=== PATIENT | male | born 1970 | race Two or more races ===

== ENCOUNTER 2019-06-08 11:15 | Inpatient (IN) | payer OTHER ==
[~2019-06-08 11:15] MED LIST: DARUNAVIR 800 MG/COBICISTAT 150MG TABLET PO ONE; EMTRICITABINE/TENOFOV ALAFENAM (DESCOVY) TABLET PO ONE
[2019-06-08 12:30] VITALS: BMI 25.4
--- NOTE | 2019-06-08 13:42 | HP ---
COWS - Scale Resting Pulse: 0= [place] 80 or Below Sweatin= Chills/Flushing Restless Observation: 1= Difficult to Sit Still Pupil Size: 1= Pupils >than Normal Bone or Joint Aches: 2= Severe Diffuse Aches Runny Nose/ Eye Tearin= Runny Nose/Eyes GI Upset > 30mins: 2= Nausea/Diarrhea Tremor Observation: 1= Tremor [place], Not Seen Yawning Observation: 2= >3x During Session Anxiety or Irritability: 2=Irritable/Anxious Goose Flesh Skin: 0=Smooth Skin COWS Score: 14 CIWA Score Nausea/Vomitin-Mild Nausea/No Vomiting Muscle Tremors: 3 Anxiety: 2 Agitation: 2 Paroxysmal Sweats: 3 Orientation: 0-Oriented Tacttile Disturbances: 0-None Auditory Disturbances: 0-None Visual Disturbances: 0-None Headache: 1-Very Mild CIWA-Ar Total Score: 12 - Admission Criteria OASAS Guidelines: Admission for Medically Managed Detox: Requires at least one of the followin. CIWA greater than 12 2. Seizures within the past 24 hours 3. Delirium tremens within the past 24 hours 4. Hallucinations within the past 24 hours 5. Acute intervention needed for co occurring medical disorder 6. Acute intervention needed for co occurring psychiatric disorder 7. Severe withdrawal that cannot be handled at a lower level of care (continued vomiting, continued diarrhea, abnormal vital signs) requiring intravenous medication and/or fluids 8. Admission ROS [facility] Chief Complaint: " I want to stop using heroin and stop using drugs and ciggarettes" Allergies/Adverse Reactions: Allergies Allergy/AdvReac Type Severity Reaction Status Date / Time No Known Allergies Allergy Verified 06/08/19 12:16 History of Present Illness: Patient is a 48 year old male with opioid dependence, alcohol dependence and cocaine use. Patient is also a smoker of 1ppd for 35 years. Patient 14 bags per day of heroin, last used this am. Patient uses cocaine about $30-40 per day, and last used yesterday night Patient drinks a 1/4 pint of vodka every day, and last drank this AM. Patient has had blackouts. Patients never had seizures on withdrawal. Patient is homeless but sometimes stays with his mother. He has approved for housing and has a voucher for [employer] and rental aide. PMHx: None Psurg Hx: None except for varicose vein depletion. Patient has no legal issues pending. Exam Limitations: No Limitations - Ebola screening Have you traveled outside of the country in the last 21 days: No Have you had contact with anyone from an Ebola affected area: No Have you been sick,other than usual withdrawal symptoms: No Do you have a fever: No - Review of Systems Constitutional: Diaphoresis, Unintentional Wgt. Loss EENT: reports: Tearing, Nose Congestion Respiratory: reports: No Symptoms reported Cardiac: reports: No Symptoms Reported GI: reports: Nausea, Abdominal cramping : reports: No Symptoms Reported Musculoskeletal: reports: Muscle Pain Integumentary: reports: No Symptoms Reported Neuro: reports: Numbness (in feet) Endocrine: reports: No Symptoms Reported Hematology: reports: No Symptoms Reported Psychiatric: reports: Judgement Intact, Mood/Affect Appropiate, Orientated x3 Other Systems: Reviewed and Negative Patient History - Patient Medical History Hx Anemia: No Hx Asthma: No Hx Chronic Obstructive Pulmonary Disease (COPD): No Hx Cancer: No Hx Cardiac Disorders: No Hx Congestive Heart Failure: No Hx Hypertension: No Hx Hypercholesterolemia: No Hx Pacemaker: No HX Cerebrovascular Accident: No Hx Seizures: No Hx Dementia: No Hx Diabetes: No Hx Gastrointestinal Disorders: No Hx Liver Disease: No Hx Genitourinary Disorders: No Hx Sexually Transmitted Disorders: No Hx Renal Disease (ESRD): No Hx Thyroid Disease: No Hx Human Immunodeficiency Virus (HIV): No Hx Hepatitis C: No Hx Depression: No Hx Suicide Attempt: No Hx Bipolar Disorder: No Hx Schizophrenia: No - Patient Surgical History Past Surgical History: Yes Other Surgical History: veins removed due to varicosities - PPD History Previous Implant?: Yes Documented Results: Negative w/o proof Implanted On Prior R Admission?: No PPD to be Administered?: No - Smoking Cessation Smoking history: Current every day smoker Have you smoked in the past 12 months: Yes Aproximately how many cigarettes per day: 20 Hx Chewing Tobacco Use: No Initiated information on smoking cessation: No 'Breaking Loose' booklet given: 06/08/19 - Substances abused Other Substance route: Oral Frequency: Daily Amount used: 4- 24oz Margaritas, Cognac 1/4 of a pint Age of first use: 14 Date of last use: 06/08/19 Heroin Substance route: Inhalation Frequency: Daily Amount used: 13 bags Age of first use: 14 Date of last use: 06/08/19 Cocaine Substance route: Inhalation Frequency: 3-6 times per week Amount used: $30 Age of first use: 14 Date of last use: 06/07/19 Family Disease History - Family Disease History Family History: Unremarkable Family Disease History: Other: Father (alive and well ), Mother (alive and well) , Sister (2 sister alive and well) Admission Physical Exam S - Vital Signs Vital Signs: Vital Signs - 24 hr 06/08/19 12:22 Temperature 98.2 F Pulse Rate 58 L Respiratory 17 Rate Blood Pressure 119/73 Cleared for Admission [facility] - Detox or Rehab [facility] Level of Care: Medically Managed Detox Regimen/Protocol: Methadone/Librium Claeared for Rehab Admission: No Screened but not Admitted - Documentation of Visit Screened but not Admitted: No Breathalyzer - Breathalyzer Breathalyzer: 0.004 Vital Signs - Vital Signs Vital signs refused: No Temperature: 98.2 F Temperature source: Oral Pulse Rate: 58 Respiratory Rate: 17 Blood Pressure: 119/73 BP Location: Left Arm Blood Pressure position: Sitting - Height Height: 6 ft - Weight Weight: 188 lb Weight measurement method: Standing scale - BMI Body Mass Index (BMI): 25.4 - Bowel Function Bowel Movement: No Inpatient Rehab Admission - Rehab Decision to Admit Inpatient rehab admission?: No
[2019-06-08] MEDS ORDERED: MENTHOL/PHENOL 1 EACH UD MM PRN (13:51)
[2019-06-08] MEDS ORDERED: MAGNESIUM CITRATE 300 ML BOTTLE PO PRN (13:51)
[2019-06-08] MEDS ORDERED: IBUPROFEN 400 MG TABLET (FP) PO PRN (13:51)
[2019-06-08] MEDS ORDERED: MAG HYDROX/AL HYDROX/SIMETH 30 ML UNIT-DOSE CUP PO PRN (13:51)
[2019-06-08] MEDS ORDERED: BISMUTH SUBSALICYLATE 524 MG/30 ML UD PO PRN (13:51)
[2019-06-08] MEDS ORDERED: MAGNESIUM HYDROX 2400MG/30ML ORAL SUSPENSION 30 ML CUP PO PRN (13:51)
[2019-06-08] MEDS ORDERED: ACETAMINOPHEN 325 MG TABLET (FP) PO PRN ×2 (13:51)
[2019-06-08] MEDS ORDERED: chlordiazePOXIDE HCL 25 MG CAPSULE PO PRN (13:51)
[2019-06-08] MEDS ORDERED: METHOCARBAMOL 500 MG TABLET PO PRN (13:51)
[2019-06-08] MEDS ORDERED: cloNIDine HCL 0.1 MG TABLET PO PRN (13:51)
[2019-06-08] MEDS ORDERED: hydrOXYzine PAMOATE 25 MG CAPSULE (FP) PO PRN (13:51)
[2019-06-08] MEDS ORDERED: LEVOTHYROXINE NA 25 MCG TABLET (FP) PO SCH (14:00)
[2019-06-08] MEDS ORDERED: DARUNAVIR 800 MG/COBICISTAT 150MG TABLET PO SCH (14:45)
[2019-06-08] MEDS ORDERED: RALTEGRAVIR POTASSIUM 400 MG TAB PO SCH (14:45)
[2019-06-08] MEDS ORDERED: METHADONE HCL 10 MG TABLET (FOR DETOX USE ONLY) PO ONE (14:45)
[2019-06-08] MEDS ORDERED: EMTRICITABINE/TENOFOV ALAFENAM (DESCOVY) TABLET PO SCH (14:45)
[2019-06-08] MEDS: NICOTINE 21 MG/24 HOURS TOPICAL PATCH TD SCH (15:35)
[2019-06-08 17:01] LABS: HEMATOCRIT 40.9 % (35.4-49); HEMOGLOBIN 14.4 GM/dL (11.7-16.9); MCH 33.5 pg (25.7-33.7); MCHC 35.4 g/dl (32.0-35.9); MEAN CELL VOLUME 94.8 fl (80-96); MEAN PLT VOLUME 9.8 fl (7.5-11.1); PLATELET COUNT 209 K/MM3 (134-434); RBC 4.31 M/mm3 (4.00-5.60); RDW 12.8 % (11.9-15.9); WHITE BLOOD COUNT 6.5 K/mm3 (4.0-10.0)
[2019-06-08 17:16] LABS: ALBUMIN 3.9 g/dl (3.4-5.0); BILIRUBIN,TOTAL 0.4 mg/dL (0.2-1); BLOOD UREA NITROGEN 11.1 mg/dL (7-18); CREATININE 1.1 mg/dL (0.55-1.3); TOT PROT 7.3 g/dl (6.4-8.2)
[2019-06-08] MEDS: chlordiazePOXIDE HCL 25 MG CAPSULE PO SCH ×2 (17:50→22:18)
[2019-06-08] MEDS: THIAMINE HCL 100 MG TABLET (FP) PO SCH (22:18)
[2019-06-08] MEDS: RALTEGRAVIR POTASSIUM 400 MG TAB PO SCH (22:18)
[2019-06-08] MEDS: MELATONIN 5 MG TABLETS PO PRN (22:19)
[2019-06-08] MEDS ORDERED: EMTRICITABINE/TENOFOV ALAFENAM (DESCOVY) TABLET PO ONE (23:30)
[2019-06-08] MEDS ORDERED: DARUNAVIR 800 MG/COBICISTAT 150MG TABLET PO ONE (23:59)
[2019-06-09] MEDS: chlordiazePOXIDE HCL 25 MG CAPSULE PO SCH ×4 (06:32→22:37)
[2019-06-09] MEDS: LEVOTHYROXINE NA 75 MCG TABLET (FP) PO SCH (06:35)
[2019-06-09] MEDS ORDERED: METHADONE HCL 10 MG TABLET (FOR DETOX USE ONLY) ONE (09:06)
[2019-06-09] MEDS ORDERED: METHADONE HCL 5 MG TABLET (FOR DETOX USE ONLY) ONE (09:06)
[2019-06-09] MEDS ORDERED: METHADONE (DETOX) 20 MG, METHADONE (DETOX) 5 MG PO ONE (10:00)
[2019-06-09] MEDS: NICOTINE 21 MG/24 HOURS TOPICAL PATCH TD SCH (10:21)
[2019-06-09] MEDS: PRENATAL VITAMINS W/ FOLIC ACID TABLET (FP) PO SCH (10:22)
[2019-06-09] MEDS: DARUNAVIR 800 MG/COBICISTAT 150MG TABLET PO SCH (10:23)
[2019-06-09] MEDS: EMTRICITABINE/TENOFOV ALAFENAM (DESCOVY) TABLET PO SCH (10:23)
[2019-06-09] MEDS: RALTEGRAVIR POTASSIUM 400 MG TAB PO SCH ×2 (10:23→22:38)
[2019-06-09] MEDS ORDERED: EMTRICITABINE/TENOFOV ALAFENAM (DESCOVY) TABLET PO ONE (10:59)
--- NOTE | 2019-06-09 13:17 | PN ---
[facility] CIWA - CIWA Score Nausea/Vomitin-No Nausea/No Vomiting Muscle Tremors: 3 Anxiety: 2 Agitation: 1-Slight > Activity Paroxysmal Sweats: 3 Orientation: 0-Oriented Tacttile Disturbances: 2-Mild Itch/Numbness/Burn Auditory Disturbances: 2-Mild Harshness/Frighten Visual Disturbances: 0-None Headache: 0-None Present CIWA-Ar Total Score: 13 S COWS - Scale Resting Pulse: 0= [place] 80 or Below Sweatin= Chills/Flushing Restless Observation: 1= Difficult to Sit Still Pupil Size: 0= Normal to Room Light Bone or Joint Aches: 2= Severe Diffuse Aches Runny Nose/ Eye Tearin= None GI Upset > 30mins: 0= None Tremor Observation of Outstretched Hands: 2= Slight Tremor Visible Yawning Observation: 1= 1-2x During Session Anxiety or Irritability: 2=Irritable/Anxious Goose Flesh Skin: 3=Piloerection COWS Score: 12 S Progress Note (SOAP) Subjective: Tremors, Anxious, Body Aches, Sweating. Objective: PATIENT A & O X 3, OBSERVED AMBULATING ON UNIT UNASSISTED. IN NO ACUTE DISTRESS. 06/09/19 13:17 Vital Signs Temperature 97.3 F L 06/09/19 09:33 Pulse Rate 50 L 06/09/19 09:33 Respiratory Rate 16 06/09/19 09:33 Blood Pressure 114/74 06/09/19 09:33 O2 Sat by Pulse Oximetry (%) Laboratory Tests 06/08/19 06/08/19 06/08/19 14:00 14:00 14:00 WBC 6.5 RBC 4.31 Hgb 14.4 Hct 40.9 MCV 94.8 MCH 33.5 MCHC 35.4 RDW 12.8 Plt Count 209 MPV 9.8 Sodium 141 Potassium 4.0 Chloride 106 Carbon Dioxide 27 Anion Gap 8 BUN 11.1 Creatinine 1.1 Est GFR (CKD-EPI)AfAm 90.88 Est GFR (CKD-EPI)NonAf 78.41 Random Glucose 120 H Calcium 9.0 Total Bilirubin 0.4 AST 23 ALT 42 Alkaline Phosphatase 86 Total Protein 7.3 Albumin 3.9 RPR Titer Nonreactive LABS NOTED. RESULTS OF DETOX ADMISSION QFT /TB TEST PENDING. 06/09/19 13:18 Assessment: 08/14/19 13:18 WITHDRAWAL SYMPTOMS. Plan: CONTINUE DETOX. INCREASE DAILY PO WATER INTAKE.
[2019-06-09] MEDS: MELATONIN 5 MG TABLETS PO PRN (22:37)
[2019-06-09] MEDS: THIAMINE HCL 100 MG TABLET (FP) PO SCH (22:37)
[2019-06-10] MEDS: chlordiazePOXIDE HCL 25 MG CAPSULE PO SCH ×4 (06:46→22:33)
[2019-06-10] MEDS: LEVOTHYROXINE NA 75 MCG TABLET (FP) PO SCH (06:48)
[2019-06-10] MEDS ORDERED: METHADONE HCL 10 MG TABLET (FOR DETOX USE ONLY) PO ONE (10:00)
[2019-06-10] MEDS: EMTRICITABINE/TENOFOV ALAFENAM (DESCOVY) TABLET PO SCH (10:05)
[2019-06-10] MEDS: NICOTINE 21 MG/24 HOURS TOPICAL PATCH TD SCH (10:05)
[2019-06-10] MEDS: PRENATAL VITAMINS W/ FOLIC ACID TABLET (FP) PO SCH (10:05)
[2019-06-10] MEDS: RALTEGRAVIR POTASSIUM 400 MG TAB PO SCH ×2 (10:05→22:30)
[2019-06-10] MEDS: DARUNAVIR 800 MG/COBICISTAT 150MG TABLET PO SCH (10:06)
--- NOTE | 2019-06-10 16:22 | PN ---
S CIWA - CIWA Score Nausea/Vomitin-No Nausea/No Vomiting Muscle Tremors: 2 Anxiety: 3 Agitation: 2 Paroxysmal Sweats: 3 Orientation: 0-Oriented Tacttile Disturbances: 1-Very Mild Itch/Numbness Auditory Disturbances: 0-None Visual Disturbances: 0-None Headache: 0-None Present CIWA-Ar Total Score: 11 BHS COWS - Scale Resting Pulse: 0= [place] 80 or Below Sweatin= Chills/Flushing Restless Observation: 1= Difficult to Sit Still Pupil Size: 0= Normal to Room Light Bone or Joint Aches: 2= Severe Diffuse Aches Runny Nose/ Eye Tearin= None GI Upset > 30mins: 0= None Tremor Observation of Outstretched Hands: 2= Slight Tremor Visible Yawning Observation: 1= 1-2x During Session Anxiety or Irritability: 2=Irritable/Anxious Goose Flesh Skin: 0=Smooth Skin COWS Score: 9 S Progress Note (SOAP) Subjective: Tremors, Sweating, Anxious, Body Aches. Objective: PATIENT A & O X 3, OBSERVED AMBULATING ON UNIT UNASSISTED. IN NO ACUTE DISTRESS. 06/10/19 16:19 Vital Signs Temperature 98.4 F 06/10/19 14:12 Pulse Rate 57 L 06/10/19 14:12 Respiratory Rate 18 06/10/19 14:12 Blood Pressure 125/75 06/10/19 14:12 O2 Sat by Pulse Oximetry (%) Laboratory Tests 06/08/19 06/08/19 06/08/19 14:00 14:00 14:00 WBC 6.5 RBC 4.31 Hgb 14.4 Hct 40.9 MCV 94.8 MCH 33.5 MCHC 35.4 RDW 12.8 Plt Count 209 MPV 9.8 Sodium 141 Potassium 4.0 Chloride 106 Carbon Dioxide 27 Anion Gap 8 BUN 11.1 Creatinine 1.1 Est GFR (CKD-EPI)AfAm 90.88 Est GFR (CKD-EPI)NonAf 78.41 Random Glucose 120 H Calcium 9.0 Total Bilirubin 0.4 AST 23 ALT 42 Alkaline Phosphatase 86 Total Protein 7.3 Albumin 3.9 RPR Titer Nonreactive LABS NOTED. RESULTS OF DETOX ADMISSION QFT /TB TEST PENDING. 06/10/19 16:21 Assessment: 06/10/19 16:20 WITHDRAWAL SYMPTOMS. 06/10/19 16:21 Plan: CONTINUE DETOX.
[2019-06-10] MEDS: THIAMINE HCL 100 MG TABLET (FP) PO SCH (22:29)
[2019-06-11] MEDS ORDERED: chlordiazePOXIDE HCL 10 MG CAPSULE PO PRN
[2019-06-11] MEDS: LEVOTHYROXINE NA 75 MCG TABLET (FP) PO SCH (07:11)
[2019-06-11] MEDS: chlordiazePOXIDE HCL 10 MG CAPSULE PO SCH ×4 (07:11→22:08)
[2019-06-11] MEDS ORDERED: METHADONE HCL 5 MG TABLET (FOR DETOX USE ONLY) ONE (09:17)
[2019-06-11] MEDS ORDERED: METHADONE HCL 10 MG TABLET (FOR DETOX USE ONLY) ONE (09:17)
[2019-06-11] MEDS ORDERED: METHADONE (DETOX) 10 MG, METHADONE (DETOX) 5 MG PO ONE (10:00)
--- NOTE | 2019-06-11 10:22 | PN ---
S CIWA - CIWA Score Nausea/Vomitin-No Nausea/No Vomiting Muscle Tremors: None Anxiety: 3 Agitation: 0-Normal Activity Paroxysmal Sweats: 3 Orientation: 0-Oriented Tacttile Disturbances: 0-None Auditory Disturbances: 0-None Visual Disturbances: 0-None Headache: 2-Mild CIWA-Ar Total Score: 8 S COWS - Scale Resting Pulse: 0= [place] 80 or Below Sweatin= Beads of Sweat on Face Restless Observation: 1= Difficult to Sit Still Pupil Size: 0= Normal to Room Light Bone or Joint Aches: 2= Severe Diffuse Aches Runny Nose/ Eye Tearin= None GI Upset > 30mins: 0= None Tremor Observation of Outstretched Hands: 0= None Yawning Observation: 1= 1-2x During Session Anxiety or Irritability: 2=Irritable/Anxious Goose Flesh Skin: 0=Smooth Skin COWS Score: 9 S Progress Note (SOAP) Subjective: c/o sweats, muscle aches, anxiety, irritability, and headache. Objective: 06/11/19 10:21 Vital Signs 06/11/19 06/11/19 06/11/19 03:30 06:00 09:37 Temperature 97.9 F 97.9 F Pulse Rate 52 L 51 L Respiratory 18 18 17 Rate Blood Pressure 116/65 105/53 L Assessment: AOX3, in no acute respiratory distress. Full ROM, ambulating in the unit. Withdrawal symptoms. Plan: continue detox.
[2019-06-11] MEDS: NICOTINE 21 MG/24 HOURS TOPICAL PATCH TD SCH (10:29)
[2019-06-11] MEDS: EMTRICITABINE/TENOFOV ALAFENAM (DESCOVY) TABLET PO SCH (10:29)
[2019-06-11] MEDS: RALTEGRAVIR POTASSIUM 400 MG TAB PO SCH ×2 (10:29→22:09)
[2019-06-11] MEDS: PRENATAL VITAMINS W/ FOLIC ACID TABLET (FP) PO SCH (10:29)
[2019-06-11] MEDS: DARUNAVIR 800 MG/COBICISTAT 150MG TABLET PO SCH (10:55)
[2019-06-11] MEDS: THIAMINE HCL 100 MG TABLET (FP) PO SCH (22:09)
[2019-06-11] MEDS: MELATONIN 5 MG TABLETS PO PRN (22:09)
[2019-06-12] MEDS: LEVOTHYROXINE NA 75 MCG TABLET (FP) PO SCH (06:49)
[2019-06-12] MEDS: chlordiazePOXIDE HCL 10 MG CAPSULE PO SCH ×2 (06:49→20:15)
[2019-06-12] MEDS ORDERED: METHADONE HCL 10 MG TABLET (FOR DETOX USE ONLY) PO ONE (10:00)
[2019-06-12] MEDS: NICOTINE 21 MG/24 HOURS TOPICAL PATCH TD SCH (10:41)
[2019-06-12] MEDS: EMTRICITABINE/TENOFOV ALAFENAM (DESCOVY) TABLET PO SCH (10:41)
[2019-06-12] MEDS: DARUNAVIR 800 MG/COBICISTAT 150MG TABLET PO SCH (10:42)
[2019-06-12] MEDS: RALTEGRAVIR POTASSIUM 400 MG TAB PO SCH ×2 (10:42→21:20)
[2019-06-12] MEDS: PRENATAL VITAMINS W/ FOLIC ACID TABLET (FP) PO SCH (10:42)
--- NOTE | 2019-06-12 11:36 | PN ---
[facility] CIWA - CIWA Score Nausea/Vomitin-No Nausea/No Vomiting Muscle Tremors: None Anxiety: 2 Agitation: 1-Slight > Activity Paroxysmal Sweats: 2 Orientation: 0-Oriented Tacttile Disturbances: 0-None Auditory Disturbances: 0-None Visual Disturbances: 0-None Headache: 1-Very Mild CIWA-Ar Total Score: 6 BHS COWS - Scale Resting Pulse: 0= [place] 80 or Below Sweatin= Chills/Flushing Restless Observation: 1= Difficult to Sit Still Pupil Size: 0= Normal to Room Light Bone or Joint Aches: 1= Mild Discomfort Runny Nose/ Eye Tearin= None GI Upset > 30mins: 0= None Tremor Observation of Outstretched Hands: 0= None Yawning Observation: 1= 1-2x During Session Anxiety or Irritability: 2=Irritable/Anxious Goose Flesh Skin: 0=Smooth Skin COWS Score: 6 S Progress Note (SOAP) Subjective: c/o anxiety, irritability, headache, and sweats. Objective: 06/12/19 11:34 Vital Signs 06/12/19 06/12/19 06:54 09:37 Temperature 97.9 F 97.7 F Pulse Rate 55 L 58 L Respiratory 18 16 Rate Blood Pressure 106/60 115/70 Lab Results WBC 6.5 K/mm3 (4.0-10.0) 06/08/19 14:00 RBC 4.31 M/mm3 (4.00-5.60) 06/08/19 14:00 Hgb 14.4 GM/dL (11.7-16.9) 06/08/19 14:00 Hct 40.9 % (35.4-49) 06/08/19 14:00 MCV 94.8 fl (80-96) 06/08/19 14:00 MCHC 35.4 g/dl (32.0-35.9) 06/08/19 14:00 RDW 12.8 % (11.9-15.9) 06/08/19 14:00 Plt Count 209 K/MM3 (134-434) 06/08/19 14:00 Sodium 141 mmol/L (136-145) 06/08/19 14:00 Potassium 4.0 mmol/L (3.5-5.1) 06/08/19 14:00 Chloride 106 mmol/L (98-107) 06/08/19 14:00 Carbon Dioxide 27 mmol/L (21-32) 06/08/19 14:00 Anion Gap 8 MMOL/L (8-16) 06/08/19 14:00 BUN 11.1 mg/dL (7-18) 06/08/19 14:00 Creatinine 1.1 mg/dL (0.55-1.3) 06/08/19 14:00 Random Glucose 120 mg/dL (74-106) H 06/08/19 14:00 Calcium 9.0 mg/dL (8.5-10.1) 06/08/19 14:00 Labs noted. Assessment: 06/12/19 11:34 AOX3, in no acute distress. Full ROM, ambulating in the unit. Withdrawal symptoms. For discharge 06/13/19. Pt states he has refills at his pharmacy for pick-up. Plan: continue detox. D/C in AM.
[2019-06-12] MEDS: THIAMINE HCL 100 MG TABLET (FP) PO SCH (21:20)
[2019-06-13] MEDS ORDERED: chlordiazePOXIDE HCL 10 MG CAPSULE PO ONE (05:00)
[2019-06-13] MEDS ORDERED: METHADONE HCL 5 MG TABLET (FOR DETOX USE ONLY) PO ONE (06:00)
[2019-06-13] MEDS: LEVOTHYROXINE NA 75 MCG TABLET (FP) PO SCH (06:52)
--- NOTE | 2019-06-13 09:53 | DS ---
[facility] Detox Discharge Summary Admission Date: 06/08/19 Discharge Date: 06/13/19 - History Present History: Cocaine Dependence, Opioid Dependence - Physical Exam Results Vital Signs: Vital Signs Temperature 97.7 F 06/12/19 20:58 Pulse Rate 82 06/12/19 20:58 Respiratory Rate 18 06/13/19 00:30 Blood Pressure 126/55 L 06/12/19 20:58 O2 Sat by Pulse Oximetry (%) Pertinent Admission Physical Exam Findings: pt arrived in withdrawals Laboratory Tests 06/08/19 06/08/19 06/08/19 14:00 14:00 14:00 WBC 6.5 RBC 4.31 Hgb 14.4 Hct 40.9 MCV 94.8 MCH 33.5 MCHC 35.4 RDW 12.8 Plt Count 209 MPV 9.8 Sodium 141 Potassium 4.0 Chloride 106 Carbon Dioxide 27 Anion Gap 8 BUN 11.1 Creatinine 1.1 Est GFR (CKD-EPI)AfAm 90.88 Est GFR (CKD-EPI)NonAf 78.41 Random Glucose 120 H Calcium 9.0 Total Bilirubin 0.4 AST 23 ALT 42 Alkaline Phosphatase 86 Total Protein 7.3 Albumin 3.9 RPR Titer Nonreactive TB (QFT) Incubation TB Test (QFT) Nil TB Test (QFT) Mitogen TB Test (QFT) Antigen TB Test (QFT) TB Positive Criteria 06/09/19 07:00 WBC RBC Hgb Hct MCV MCH MCHC RDW Plt Count MPV Sodium Potassium Chloride Carbon Dioxide Anion Gap BUN Creatinine Est GFR (CKD-EPI)AfAm Est GFR (CKD-EPI)NonAf Random Glucose Calcium Total Bilirubin AST ALT Alkaline Phosphatase Total Protein Albumin RPR Titer TB (QFT) Incubation TB Test (QFT) Nil 0.02 TB Test (QFT) Mitogen >10.00 TB Test (QFT) Antigen 0.02 TB Test (QFT) Negative TB Positive Criteria today pt is aaox3 ambulating no acute distress - Treatment Hospital Course: Detox Protocol Followed, Detoxed Safely, Responded well, Discharged Condition Good, Rehab Referral Accepted Patient has Accepted a Rehab Referral to: pt referred to inpatient rehab - Medication Discharge Medications: Ambulatory Orders Darunavir/Cobicistat [Prezcobix 800 mg-150 mg Tablet] 1 each PO DAILY 06/08/19 Emtricitabine/Tenofov Alafenam [Descovy 200-25 mg Tablet (Nf)] 200 mg PO DAILY 06/08/19 Levothyroxine [Synthroid -] 75 mcg PO DAILY 06/08/19 Raltegravir Potassium [Isentress] 400 mg PO BID 06/08/19 - Diagnosis (1) Opioid dependence with withdrawal Current Visit: Yes Status: Chronic (2) Cocaine dependence Current Visit: Yes Status: Chronic Qualifiers: Substance use status: uncomplicated Qualified Code(s): F14.20 - Cocaine dependence, uncomplicated (3) Nicotine dependence Current Visit: Yes Status: Chronic Qualifiers: Nicotine product type: cigarettes (4) HIV (human immunodeficiency virus infection) Current Visit: Yes Status: Chronic Qualifiers: HIV symptom status: unspecified Qualified Code(s): B20 - Human immunodeficiency virus [HIV] disease - AMA Did Patient Leave Against Medical Advice: No
[2019-06-13] MEDS: NICOTINE 21 MG/24 HOURS TOPICAL PATCH TD SCH (10:50)
[2019-06-13] MEDS: RALTEGRAVIR POTASSIUM 400 MG TAB PO SCH (10:50)
[2019-06-13] MEDS: EMTRICITABINE/TENOFOV ALAFENAM (DESCOVY) TABLET PO SCH (10:50)
[2019-06-13] MEDS: PRENATAL VITAMINS W/ FOLIC ACID TABLET (FP) PO SCH (10:50)
[2019-06-13] MEDS: DARUNAVIR 800 MG/COBICISTAT 150MG TABLET PO SCH (10:51)
[2019-06-13 17:35] VITALS: TEMP 97.9
[2019-06-13 17:36] VITALS: BP 114/65; PULSE 82
== END 2019-06-13 18:50 | disposition other institution (70) | DRG 773 ==
LOC: YASAS 11:15 → Y6N 14:07
PROVIDERS: ADMIT Surgery; ATTEND Surgery
PROC: HZ2ZZZZ Detoxification Services for Substance Abuse Treatment (ICD-10-PCS; principal; 2019-06-08)
DX: F11.23 Opioid dependence with withdrawal (principal); F14.20 Cocaine dependence, uncomplicated; F17.210 Nicotine dependence, cigarettes, uncomplicated; Z21 Asymptomatic human immunodeficiency virus [HIV] infection status
CPT/HCPCS: 36415; 80053; 85027; 86480; 86593

== ENCOUNTER 2019-06-13 18:42 | Inpatient (IN) | payer OTHER ==
[2019-06-13 19:57] VITALS: BMI 24.7
[2019-06-13] MEDS ORDERED: LOPERAMIDE HCL 2 MG CAPSULE PO PRN (20:29)
[2019-06-13] MEDS ORDERED: P-EPHED 60MG/TRIPROLIDI 2.5MG TABLET PO PRN (20:29)
[2019-06-13] MEDS ORDERED: MAG HYDROX/AL HYDROX/SIMETH 30 ML UNIT-DOSE CUP PO PRN (20:29)
[2019-06-13] MEDS ORDERED: MENTHOL/PHENOL 1 EACH UD MM PRN (20:29)
[2019-06-13] MEDS ORDERED: MAGNESIUM HYDROX 2400MG/30ML ORAL SUSPENSION 30 ML CUP PO PRN (20:29)
[2019-06-13] MEDS ORDERED: IBUPROFEN 400 MG TABLET (FP) PO PRN (20:29)
[2019-06-13] MEDS ORDERED: MAGNESIUM CITRATE 300 ML BOTTLE PO PRN (20:29)
[2019-06-13] MEDS ORDERED: ACETAMINOPHEN 325 MG TABLET (FP) PO PRN (20:29)
[2019-06-13] MEDS ORDERED: NICOTINE POLACRILEX 2 MG GUM BC PRN (20:29)
[2019-06-13] MEDS ORDERED: guaiFENesin 200 MG/10 ML 10 ML UNIT-DOSE CUPS PO PRN (20:29)
--- NOTE | 2019-06-13 20:36 | HP ---
[facility] Rehab Assess/Revision - Admission History Admitted to Rehab from: Y [address] [place] [address] - Vital signs Vital Signs: Vital Signs Period Temp Pulse Resp BP Sys/Lyons Pulse Ox Last 24 Hr 97.9 F 82 18 114/65 - Findings Detox History & Physical reviewed: Yes Inpatient Rehab Admission - Rehab Decision to Admit Inpatient rehab admission?: Yes - Initial Determination Are CD services needed?: No Free of communicable disease: Yes Not in need of hospitalization: Yes - Rehab Admission Criteria Previous failed treatment: Yes Poor recovery environment: Yes Comorbidities: Yes Lacks judgement: No Patient is meeting Inpatient Rehab admission criteria:: Yes
[2019-06-13] MEDS ORDERED: THIAMINE HCL 100 MG TABLET (FP) PO SCH (22:00)
[2019-06-13] MEDS ORDERED: MELATONIN 5 MG TABLETS PO PRN (22:00)
[2019-06-14] MEDS ORDERED: LEVOTHYROXINE NA 25 MCG TABLET (FP) PO SCH (07:00)
[2019-06-14] MEDS ORDERED: TRIMETHOBENZAMIDE HCL 200MG/2ML INJ IM ONE (09:37)
[2019-06-14] MEDS ORDERED: ONDANSETRON *ODT* 4 MG TABLET SL PRN (09:37)
[2019-06-14] MEDS ORDERED: PATIENT'S OWN MEDICATION (NON-FORMULARY) (Darunavir/Cobicistat [Prezcobix 800 Mg-150 Mg Ta PO SCH ×2 (10:00→12:00)
[2019-06-14] MEDS ORDERED: PRENATAL VITAMINS W/ FOLIC ACID TABLET (FP) PO SCH (10:00)
[2019-06-14] MEDS ORDERED: RALTEGRAVIR POTASSIUM 400 MG PO SCH (10:00)
[2019-06-14] MEDS ORDERED: PATIENT'S OWN MEDICATION (NON-FORMULARY) (Emtricitabine/Tenofov Alafenam [Descovy 200-25 M PO SCH (10:00)
[2019-06-14] MEDS ORDERED: NICOTINE 14 MG/24 HOURS TOPICAL PATCH TD SCH (10:00)
--- NOTE | 2019-06-14 10:04 | PN ---
S Progress Note Note: Patient seen for c/o nausea and vomiting x 2. Patient currently in rehab for Opiod dependence. Patient denies abdominal pain, fever, cough and SOB/CP. PMH includes HIV, compliant with medication. Vital Signs Temperature 97.6 F 06/14/19 06:00 Pulse Rate 57 L 06/14/19 06:00 Respiratory Rate 18 06/14/19 06:00 Blood Pressure 118/90 06/14/19 06:00 O2 Sat by Pulse Oximetry (%) PE: alert and oriented x 3 skin warm and dry car s1s2 resp cta bl gi soft, bs+, nt ext no visible edema A/P: Nausea and Vomiting Will order Tigan 200mg IM x one Zofran 4mg sl every 6 hr prn encourage oral fluids monitor clinically
[2019-06-14 10:06] VITALS: BP 136/62; PULSE 66; TEMP 96.7
[2019-06-14 12:20] LABS: PH,URINE 5.5 (5.0-8.0); URINE APPEARANCE CLEAR; URINE BILIRUBIN NEGATIVE (NEGATIVE); URINE COLOR DK YELLOW; URINE GLUCOSE (UA) NEGATIVE (NEGATIVE); URINE KETONE NEGATIVE (NEGATIVE); URINE LEUK ESTERASE NEGATIVE (NEGATIVE); URINE NITRITE NEGATIVE (NEGATIVE); URINE PROTEIN NEGATIVE (NEGATIVE)
--- NOTE | 2019-06-14 12:31 | PN ---
[facility] Progress Note Note: Notified by nursing staff patient requested to sign out AMA. Patient evaluated by provider and patient states " I feel sick. The medicine is not helping". ROS : + nausea, vomiting-improved, diarrhea, sweating Vital Signs (72 hours) 06/13/19 06/14/19 06/14/19 19:55 00:30 03:30 Temperature 97.9 F Pulse Rate 82 Respiratory 18 18 18 Rate Blood Pressure 114/65 06/14/19 06/14/19 06:00 09:30 Temperature 97.6 F 96.7 F L Pulse Rate 57 L 66 Respiratory 18 18 Rate Blood Pressure 118/90 136/62 PE: alert and oriented x 3 skin moist, warm car s1s2 resp cta bl gi soft, bs+, nt,nd ext full rom, amb ad surya +chills a/p: protracted withdrawal Patient offered Suboxone MAT but refused as he is prescribed Percocet as outpatient for knee pain Suboxone 2mg offered for symptomatic withdrawal symptoms and patient refused that as well Patient explained risk factors of relapse and overdose with signing out AMA- patient continued with process and stated " i don't want any of that , I just want to leave" Patient continued with AMA process
== END 2019-06-14 12:20 | disposition left against medical advice (07) | DRG 770 ==
LOC: YASAS 18:42 → Y5N 18:44 → Y3W 19:41
PROVIDERS: ADMIT Neuromusculoskeletal Medicine & OMM; ATTEND Neuromusculoskeletal Medicine & OMM
PROC: HZ42ZZZ Group Counseling for Substance Abuse Treatment, Cognitive-Behavioral (ICD-10-PCS; principal; 2019-06-13)
DX: F11.20 Opioid dependence, uncomplicated (principal); F14.20 Cocaine dependence, uncomplicated; F17.210 Nicotine dependence, cigarettes, uncomplicated; Z21 Asymptomatic human immunodeficiency virus [HIV] infection status; R11.2 Nausea with vomiting, unspecified
CPT/HCPCS: 81003; Q0162

== ENCOUNTER 2022-01-23 17:27 | Inpatient (IN) | payer OTHER ==
[2022-01-23] MEDS: THIAMINE HCL 100 MG TABLET (FP) PO SCH (00:45)
[2022-01-23] MEDS: RALTEGRAVIR POTASSIUM 400 MG TAB PO SCH (00:50)
[2022-01-23] MEDS ORDERED: ONDANSETRON *ODT* 4 MG TABLET SL PRN (19:32)
[2022-01-23] MEDS ORDERED: MAG HYDROX/AL HYDROX/SIMETH 30 ML UNIT-DOSE CUP PO PRN (19:32)
[2022-01-23] MEDS ORDERED: DICYCLOMINE HCL 10 MG CAPSULE PO PRN (19:32)
[2022-01-23] MEDS ORDERED: MAGNESIUM CITRATE 300 ML BOTTLE PO PRN (19:32)
[2022-01-23] MEDS ORDERED: MAGNESIUM HYDROX 2400MG/30ML ORAL SUSPENSION 30 ML CUP PO PRN (19:32)
[2022-01-23] MEDS ORDERED: IBUPROFEN 400 MG TABLET (FP) PO PRN (19:32)
[2022-01-23] MEDS ORDERED: ACETAMINOPHEN 325 MG TABLET (FP) PO PRN ×2 (19:32)
[2022-01-23] MEDS ORDERED: BISMUTH SUBSALICYLATE 524 MG/30 ML PO PRN (19:32)
[2022-01-23] MEDS ORDERED: MENTHOL/PHENOL 1 EACH UD MM PRN (19:32)
[2022-01-23] MEDS ORDERED: P-EPHED 60MG/TRIPROLIDI 2.5MG TABLET PO PRN (19:32)
[2022-01-23] MEDS ORDERED: LOPERAMIDE HCL 2 MG CAPSULE PO PRN (19:32)
[2022-01-23] MEDS ORDERED: cloNIDine HCL 0.1 MG TABLET PO PRN (19:34)
[2022-01-23] MEDS ORDERED: methaDONE HCL 10 MG TABLET (FOR DETOX USE ONLY) PO ONE (19:34)
[2022-01-24 00:16] VITALS: BMI 32.9
[2022-01-24] MEDS ORDERED: cloNIDine HCL 0.1 MG TABLET ONE (01:12)
[2022-01-24] MEDS ORDERED: hydrOXYzine PAMOATE 25 MG CAPSULE (FP) PO ONE (01:14)
[2022-01-24] MEDS ORDERED: METHOCARBAMOL 500 MG TABLET ONE (01:14)
[2022-01-24] MEDS ORDERED: IBUPROFEN 400 MG TABLET (FP) PO ONE (01:15)
[2022-01-24] MEDS: MELATONIN 5 MG TABLETS PO PRN ×2 (01:46→22:38)
[2022-01-24] MEDS: hydrOXYzine PAMOATE 25 MG CAPSULE (FP) PO PRN ×2 (01:51→22:27)
[2022-01-24] MEDS: METHOCARBAMOL 500 MG TABLET PO PRN ×2 (01:51→22:26)
[2022-01-24] MEDS ORDERED: LEVOTHYROXINE NA 75 MCG TABLET (FP) PO SCH (07:00)
[2022-01-24] MEDS ORDERED: diazePAM 5 MG TABLET ONE (07:44)
[2022-01-24] MEDS ORDERED: ONDANSETRON *ODT* 4 MG TABLET ONE (07:44)
[2022-01-24] MEDS: diazePAM 5 MG TABLET PO PRN ×2 (07:48→22:26)
[2022-01-24 09:56] LABS: HEMATOCRIT 38.3 % (35.4-49); HEMOGLOBIN 13.4 GM/dL (11.7-16.9); MCH 33.9 pg (25.7-33.7); MEAN CELL VOLUME 96.7 fl (80-96); MEAN PLT VOLUME 8.5 fl (7.5-11.1); PLATELET COUNT 175 10^3/uL (134-434); RBC 3.96 M/mm3 (4.00-5.60); RDW 12.5 % (11.9-15.9); WHITE BLOOD COUNT 6.4 K/mm3 (4.0-10.0)
[2022-01-24 10:00] LABS: ALBUMIN 3.6 g/dl (3.4-5.0)
[2022-01-24] MEDS ORDERED: DARUNAVIR 800 MG/COBICISTAT 150MG TABLET PO SCH (10:00)
[2022-01-24] MEDS ORDERED: EMTRICITABINE/TENOFOV ALAFENAM (DESCOVY) TABLET PO SCH (10:00)
[2022-01-24 10:03] LABS: BLOOD UREA NITROGEN 16.9 mg/dL (7-18); CALCIUM 8.8 mg/dL (8.5-10.1)
[2022-01-24 10:08] LABS: BILIRUBIN,TOTAL 0.6 mg/dL (0.2-1); TOT PROT 6.5 g/dl (6.4-8.2)
[2022-01-24] MEDS ORDERED: methaDONE HCL 10 MG TABLET (FOR DETOX USE ONLY) ONE (10:42)
[2022-01-24] MEDS: PRENATAL VITAMINS W/ FOLIC ACID TABLET (FP) PO SCH (10:49)
[2022-01-24] MEDS: RALTEGRAVIR POTASSIUM 400 MG TAB PO SCH (10:50)
[2022-01-24] MEDS ORDERED: DARUNAVIR PO SCH (12:10)
[2022-01-24] MEDS ORDERED: COBICISTAT 150 MG PO SCH (12:10)
[2022-01-24] MEDS ORDERED: PATIENT,S OWN MED:EMTRICITABINE/TENOFOV ALAFENAM (DESCOVY) TABLET PO SCH (12:14)
[2022-01-24] MEDS: NICOTINE 10 MG CARTRIDGE (INHALER) IH PRN ×2 (14:14→20:23)
[2022-01-24] MEDS: RALTEGRAVIR POTASSIUM 400 MG PO SCH ×2 (15:07→22:20)
[2022-01-24] MEDS: [UNRECOGNIZED DRUG - OTHER] PO SCH (22:19)
[2022-01-24] MEDS: THIAMINE HCL 100 MG TABLET (FP) PO SCH (22:19)
[2022-01-24] MEDS: DARUNAVIR PO SCH (22:20)
[2022-01-24] MEDS: COBICISTAT 150 MG PO SCH (22:20)
[2022-01-25] MEDS: LEVOTHYROXINE NA 25 MCG TABLET (FP) PO SCH (08:02)
[2022-01-25] MEDS ORDERED: methaDONE HCL 10 MG TABLET (FOR DETOX USE ONLY) PO ONE (10:00)
[2022-01-25] MEDS: METHOCARBAMOL 500 MG TABLET PO PRN (10:25)
[2022-01-25] MEDS: PRENATAL VITAMINS W/ FOLIC ACID TABLET (FP) PO SCH (10:25)
[2022-01-25] MEDS: RALTEGRAVIR POTASSIUM 400 MG PO SCH ×2 (10:26→22:21)
[2022-01-25] MEDS: diazePAM 5 MG TABLET PO PRN (10:26)
[2022-01-25] MEDS ORDERED: DOCUSATE SODIUM 100 MG CAPSULE (FP) PO PRN (11:16)
[2022-01-25] MEDS: NICOTINE 10 MG CARTRIDGE (INHALER) IH PRN (17:08)
[2022-01-25] MEDS: [UNRECOGNIZED DRUG - OTHER] PO SCH (22:22)
[2022-01-25] MEDS: COBICISTAT 150 MG PO SCH (22:23)
[2022-01-25] MEDS: THIAMINE HCL 100 MG TABLET (FP) PO SCH (22:23)
[2022-01-25] MEDS: DARUNAVIR PO SCH (22:23)
[2022-01-25] MEDS: hydrOXYzine PAMOATE 25 MG CAPSULE (FP) PO PRN (22:24)
[2022-01-25] MEDS: MELATONIN 5 MG TABLETS PO PRN (22:26)
[2022-01-26] MEDS: LEVOTHYROXINE NA 25 MCG TABLET (FP) PO SCH (07:10)
[2022-01-26] MEDS ORDERED: methaDONE HCL 10 MG TABLET (FOR DETOX USE ONLY) ONE (09:00)
[2022-01-26] MEDS: RALTEGRAVIR POTASSIUM 400 MG PO SCH ×2 (10:14→22:12)
[2022-01-26] MEDS: diazePAM 5 MG TABLET PO PRN (10:16)
[2022-01-26] MEDS: PRENATAL VITAMINS W/ FOLIC ACID TABLET (FP) PO SCH (10:57)
[2022-01-26] MEDS: NICOTINE 10 MG CARTRIDGE (INHALER) IH PRN (15:51)
[2022-01-26] MEDS: THIAMINE HCL 100 MG TABLET (FP) PO SCH (22:11)
[2022-01-26] MEDS: [UNRECOGNIZED DRUG - OTHER] PO SCH (22:11)
[2022-01-26] MEDS: hydrOXYzine PAMOATE 25 MG CAPSULE (FP) PO PRN (22:11)
[2022-01-26] MEDS: DARUNAVIR PO SCH (22:12)
[2022-01-26] MEDS: COBICISTAT 150 MG PO SCH (22:12)
[2022-01-27] MEDS: LEVOTHYROXINE NA 25 MCG TABLET (FP) PO SCH (06:09)
[2022-01-27] MEDS: RALTEGRAVIR POTASSIUM 400 MG PO SCH (09:54)
[2022-01-27] MEDS: PRENATAL VITAMINS W/ FOLIC ACID TABLET (FP) PO SCH (09:54)
[2022-01-27] MEDS: NICOTINE 10 MG CARTRIDGE (INHALER) IH PRN ×3 (09:57→21:51)
[2022-01-27] MEDS ORDERED: methaDONE HCL 10 MG TABLET (FOR DETOX USE ONLY) PO ONE (10:00)
[2022-01-27] MEDS: METHOCARBAMOL 500 MG TABLET PO PRN (19:58)
[2022-01-27] MEDS: hydrOXYzine PAMOATE 25 MG CAPSULE (FP) PO PRN (19:58)
[2022-01-27] MEDS ORDERED: RALTEGRAVIR POTASSIUM 400 MG TAB PO SCH (22:00)
[2022-01-27] MEDS: [UNRECOGNIZED DRUG - OTHER] PO SCH (22:25)
[2022-01-27] MEDS: THIAMINE HCL 100 MG TABLET (FP) PO SCH (22:25)
[2022-01-27] MEDS: MELATONIN 5 MG TABLETS PO PRN (22:26)
[2022-01-27] MEDS: COBICISTAT 150 MG PO SCH (22:26)
[2022-01-27] MEDS: DARUNAVIR PO SCH (22:26)
[2022-01-28] MEDS: LEVOTHYROXINE NA 25 MCG TABLET (FP) PO SCH (06:18)
[2022-01-28] MEDS: METHOCARBAMOL 500 MG TABLET PO PRN (08:41)
[2022-01-28] MEDS: hydrOXYzine PAMOATE 25 MG CAPSULE (FP) PO PRN (08:41)
[2022-01-28 09:05] VITALS: BP 125/78; PULSE 67; TEMP 98.9
[2022-01-28] MEDS ORDERED: RALTEGRAVIR POTASSIUM 400 MG TAB PO SCH ×2 (10:00→22:00)
[2022-01-28 20:07] LABS: SARS-CoV-2 NAA Not Detected (Not Detected)
== END 2022-01-28 10:05 | disposition home or self-care (01) | DRG 773 ==
LOC: YASAS 17:27 → Y6N 01-24 12:30
PROVIDERS: ADMIT Allergy & Immunology; ATTEND Allergy & Immunology
PROC: HZ2ZZZZ Detoxification Services for Substance Abuse Treatment (ICD-10-PCS; principal; 2022-01-24)
DX: F11.23 Opioid dependence with withdrawal (principal); F14.20 Cocaine dependence, uncomplicated; F10.10 Alcohol abuse, uncomplicated; F13.10 Sedative, hypnotic or anxiolytic abuse, uncomplicated; F17.210 Nicotine dependence, cigarettes, uncomplicated; F41.9 Anxiety disorder, unspecified; Z21 Asymptomatic human immunodeficiency virus [HIV] infection status; K21.9 Gastro-esophageal reflux disease without esophagitis
CPT/HCPCS: 36415; 80053; 82962; 85027; 86780; 87811; 93005; 93010; C9803-CS; J0735; Q0162; U0003; U0005